=== PATIENT | female | born 1995 | race African-American/Black ===

== ENCOUNTER 2020-12-02 15:31 | Observation (INO) | payer MEDICAID ==
[~2020-12-02] VITALS: Ht 157.5 cm; Wt 111.1 kg
[2020-12-02 16:19] LABS: CLARITY URINE CLOUDY (CLEAR); COLOR URINE YELLOW (YELLOW); KETONES URINE NEGATIVE (NEGATIVE); LEUKOCYTE ESTERASE URINE 1+ (NEGATIVE); NITRITE URINE NEGATIVE (NEGATIVE); OCCULT BLOOD URINE NEGATIVE (NEGATIVE); PH URINE 6.5 (4.5-8.0); PROTEIN URINE NEGATIVE (NEGATIVE); SPECIFIC GRAVITY URINE 1.012 (1.005-1.030)
== END 2020-12-02 17:45 | disposition home or self-care (01) ==
LOC: 8 EST LDRP 15:31
PROVIDERS: ADMIT Obstetrics & Gynecology; ATTEND Obstetrics & Gynecology
DX: O62.9 Abnormality of forces of labor, unspecified (principal); Z3A.29 29 weeks gestation of pregnancy
CPT/HCPCS: 59025; 76805; 76817; 76818; 81003; G0378; 99281